=== PATIENT | female | born 1955 | race Caucasian/White ===

== ENCOUNTER 2017-11-14 14:41 | Outpatient (CLI) | payer BC | END 2017-11-14 14:42 | disposition home or self-care (01) | LOC: BICMAMMO 14:41 | PROVIDERS: ATTEND Obstetrics & Gynecology | DX: Z12.31 Encounter for screening mammogram for malignant neoplasm of breast (principal) | CPT/HCPCS: 77063; 77067 ==

== ENCOUNTER 2018-12-05 05:53 | Day surgery (SDC) | payer BC ==
[2018-12-04 12:46] VITALS: BMI 27.7
[2018-12-05] MEDS ORDERED: Sodium Chloride 0.9% 10 ML ONE (06:24)
[2018-12-05 06:49] LABS: #Basophils 0.1 thou/uL (0.0-0.2); #Eosinphils 0.3 thou/uL (0.0-0.7); #Lymphocytes 3.3 thou/uL (1.20-3.40); #Monocytes 1.1 thou/uL (0.11-0.59); #Neutrophils 6.6 thou/uL (1.40-6.50); %Basophils 0.6 % (0.0-1.0); %Eosinophils 2.8 % (0.0-10.0); %Lymphocytes 29.2 % (21.0-51.0); %Monocytes 9.2 % (0.0-10.0); %Neutrophils 58.2 % (42.0-75.0); Hemoglobin 15.4 g/dL (12.0-16.0); Mean Corpuscular HGB CONC 33.1 g/dL (32.0-36.0); Mean Corpuscular Hemoglobin 31.2 pg (27.0-31.0); Mean Corpuscular Volume 94.5 fL (78.0-98.0); Mean Platelet Volume 9.2 fL (7.4-10.4); Platelet Count 261 thou/uL (130-400); RBC Distribution Width 11.2 % (11.5-14.5); Red Blood Cell (RBC) Count 4.92 mill/uL (4.20-5.40); White Blood Cell (WBC) Count 11.4 thou/uL (4.8-10.8)
[2018-12-05] MEDS ORDERED: Fentanyl 100 MCG/2 ML VIAL ONE ×4 (06:58→09:46)
[2018-12-05 07:02] LABS: Anion Gap 13 mmol/L (10-20); BUN (Urea Nitrogen) 13 mg/dL (9.8-20.1); Calc. Creatinine Clearance 104 mL/min (70-130); Calcium 9.9 mg/dL (7.8-10.44); Carbon Dioxide 30 mmol/L (23-31); Chloride 103 mmol/L (98-107); Estimated GFR-MDRD 85; Glucose 101 mg/dL (80-115); Potassium 3.3 mmol/L (3.5-5.1); Sodium 143 mmol/L (136-145)
[2018-12-05] MEDS ORDERED: HYDROmorphone 0.5 MG/0.5 ML SYRINGE ONE ×4 (08:58→09:33)
[2018-12-05] MEDS ORDERED: Ketorolac Tromethamine 30 MG/ML VIAL ONE (09:14)
[2018-12-05] MEDS ORDERED: Promethazine HCl 25 MG/ML VIAL IM/IV PRN (09:17)
[2018-12-05] MEDS ORDERED: Ketorolac Tromethamine 30 MG/ML VIAL IM/IV PRN (09:17)
[2018-12-05] MEDS ORDERED: Ondansetron HCl/PF 4 MG/2 ML Vial IVP PRN (09:17)
[2018-12-05] MEDS ORDERED: Non-Formulary Medication 1 EACH PO PRN (09:17)
[2018-12-05] MEDS ORDERED: HYDROmorphone 2 MG/ML VIAL SLOW IVP PRN (09:17)
[2018-12-05] MEDS ORDERED: Ondansetron PF 4 MG/2 ML Vial ONE (09:35)
[2018-12-05] MEDS ORDERED: diphenhydrAMINE 25 MG CAP PO PRN (09:36)
[2018-12-05] MEDS ORDERED: Mag-Al 1200 mg/1200 mg/30 ML UDCUP PO PRN (09:36)
[2018-12-05] MEDS ORDERED: Promethazine HCl 25 MG/ML VIAL IM PRN (09:36)
[2018-12-05] MEDS ORDERED: HYDROcodone/Acetaminophen 10/325 mg Tablet PO PRN ×2 (09:36)
[2018-12-05] MEDS ORDERED: Promethazine HCl 12.5 MG SUPP PR PRN (09:36)
[2018-12-05] MEDS ORDERED: Promethazine 25 MG TAB PO PRN (09:36)
[2018-12-05] MEDS ORDERED: tiZANidine HCl 4 MG TAB PO PRN (09:36)
[2018-12-05] MEDS ORDERED: traMADol HCl 50 MG TAB PO PRN ×2 (09:36)
[2018-12-05] MEDS ORDERED: Sodium Chloride 0.9% 1,000 ML IV SCH (09:36)
[2018-12-05] MEDS ORDERED: Morphine 4 MG/ML VIAL SLOW IVP PRN (09:36)
[2018-12-05] MEDS ORDERED: Milk Of Magnesia 30 ML UDCUP PO PRN (09:36)
[2018-12-05] MEDS ORDERED: diphenhydrAMINE 50 MG/ML VIAL IVP PRN (09:36)
[2018-12-05] MEDS ORDERED: Ondansetron PF 4 MG/2 ML Vial IVP PRN (09:37)
[2018-12-05] MEDS ORDERED: Promethazine HCl 25 MG/ML VIAL ONE (09:49)
[2018-12-05] MEDS ORDERED: Morphine 2 MG/ML SYRINGE SLOW IVP PRN (10:00)
--- NOTE | 2018-12-05 10:45 | OP ---
DATE OF PROCEDURE: 12/05/2018 SOLDER DEPOSIT OPERATOR: Anabelle Petersen PA-C. PROCEDURES PERFORMED: L4-L5 laminectomy, posterolateral arthrodesis, pedicle screw instrumentation L4-L5, demineralized bone matrix, and local morselized autograft. DESCRIPTION OF PROCEDURE: The patient was brought to the operating room and intubated. She was rolled in a prone position on gel-filled chest rolls. Incision was made exposing L4 and L5, and the level was confirmed by x-ray. We performed complete L5 and inferior L4 laminectomies, completely decompressing the neural elements. Pedicle screws were then placed at right L4 and right L5 using lateral fluoroscopic guidance and position was confirmed by x-ray. The jarad was secured between the screws, connected by nuts, which were final tightened. The wound was extensively irrigated. MAC hemostasis was secured. A combination of demineralized bone matrix and local morselized autograft was laid over the lamina and posterolateral surfaces for the purpose of arthrodesis. Vancomycin powder was applied, and the wound was then closed in anatomic layers. Job ID: [id number]
[2018-12-05 12:25] VITALS: BP 116/68; TEMP 98
--- NOTE | 2018-12-07 10:15 | EKG ---
Test Reason : PREOP Blood Pressure : / mmHG Vent. Rate : 064 BPM Atrial Rate : 064 BPM P-R Int : 176 ms QRS Dur : 082 ms QT Int : 390 ms P-R-T Axes : 041 004 -21 degrees QTc Int : 402 ms Normal sinus rhythm Inferior infarct , age undetermined Abnormal ECG No previous ECGs available Confirmed by KATHERINE PUENTE MD ([id number]) on 12/07/2018 10:14:40 AM Referred By: ANGELA Confirmed By:KATHERINE PUENTE MD
== END 2018-12-05 15:50 | disposition home or self-care (01) ==
LOC: SDC 05:53 → SURG B 06:30 → SDC 15:50
PROVIDERS: ATTEND Neurological Surgery
PROC: 01NB0ZZ Release Lumbar Nerve, Open Approach (ICD-10-PCS; principal; 2018-12-05)
PROC: 0SG0071 Fusion of Lumbar Vertebral Joint with Autologous Tissue Substitute, Posterior Approach, Posterior Column, Open Approach (ICD-10-PCS; principal; 2018-12-05)
PROC: 0ST20ZZ Resection of Lumbar Vertebral Disc, Open Approach (ICD-10-PCS; principal; 2018-12-05)
DX: M43.16 Spondylolisthesis, lumbar region (principal); M48.062 Spinal stenosis, lumbar region with neurogenic claudication
CPT/HCPCS: 76000; 80048; 85025; 93005; 93010; J0131; J0690; J1170; J1885; J2405; J2550; J3010; J3370; J3490

== ENCOUNTER 2018-12-20 08:59 | Outpatient (CLI) | payer BC ==
--- NOTE | 2018-12-20 09:34 | RAD ---
TWO VIEWS LUMBAR SPINE: HISTORY: Spondylolisthesis at L4-L5. Follow-up from surgery. COMPARISON: None. FINDINGS: Five lumbar-type vertebrae. Lumbar spine vertebral body height is maintained. No fracture. Unilateral right-sided transpedicular screw at L4 and L5. No perihardware lucency. Spondylolisthesis: L4-L5: 8 mm of anterolisthesis. Laminectomy defect at L4 and L5. Incidental 2.7 cm gallstone is suspected. IMPRESSION: 1. Grade 1 anterolisthesis of L4 upon L5. Lumbar fusion at L4-L5. 2. Incidental 2.7 cm gallstone is suspected. Confirmation with right upper quadrant ultrasound is rec ommended. Code T Transcribed Date/Time: 12/20/2018 9:38 AM
== END 2018-12-20 09:00 | disposition home or self-care (01) ==
LOC: TBSIIMAG 08:59
PROVIDERS: ATTEND Neurological Surgery
DX: M43.16 Spondylolisthesis, lumbar region (principal); M48.062 Spinal stenosis, lumbar region with neurogenic claudication
CPT/HCPCS: 72100

== ENCOUNTER 2018-12-31 14:54 | Outpatient (CLI) | payer BC ==
--- NOTE | 2018-12-31 15:50 | MMO ---
Bilateral MAMMO Bilat Screen [facility]. CLINICAL HISTORY: Patient is 63 years old and is seen for screening. The patient has no family history of breast cancer. The patient has no personal history of cancer. The patient has a history of left Excisional Biopsy in April, - papilloma - ductal hyperplasia, left Stereotatic Biopsy in March, - papilloma and bilateral Breast reduction in 2008. VIEWS: The views performed were: bilateral craniocaudal with tomosynthesis and bilateral mediolateral oblique with tomosynthesis. FILMS COMPARED: The present examination has been compared to prior imaging studies performed at [facility] on 01/30/2014, 08/21/2015, 08/22/2016 and 11/14/2017. This study has been interpreted with the assistance of computer-aided detection. MAMMOGRAM FINDINGS: There are scattered fibroglandular densities. There are no suspicious masses, suspicious calcifications, or new areas of architectural distortion. IMPRESSION: THERE IS NO MAMMOGRAPHIC EVIDENCE OF MALIGNANCY. A ROUTINE FOLLOW-UP MAMMOGRAM IN 1 YEAR IS RECOMMENDED. THE RESULTS OF THIS EXAM WERE SENT TO THE PATIENT. ACR BI-RADS Category 1 - Negative MAMMOGRAPHY NOTE: 1. A negative mammogram report should not delay a biopsy if a dominant of clinically suspicious mass is present. 2. Approximately 10% to 15% of breast cancers are not detected by mammography. 3. Adenosis and dense breasts may obscure an underlying neoplasm. Reported by: Jose Alberto LUCAS Electonically Signed: [id number]
== END 2018-12-31 14:55 | disposition home or self-care (01) ==
LOC: BICMAMMO 14:54
PROVIDERS: ATTEND Obstetrics & Gynecology
DX: Z12.31 Encounter for screening mammogram for malignant neoplasm of breast (principal)
CPT/HCPCS: 77063; 77067

== ENCOUNTER 2019-02-21 13:58 | Outpatient (CLI) | payer BC ==
--- NOTE | 2019-02-21 14:21 | RAD ---
TWO VIEWS LUMBAR SPINE: INDICATION: Follow-up surgery. COMPARISON: Prior exam dated 12/20/2018. FINDINGS: Right unilateral pedicle screws at L4 and L5 with interconnecting jarad are stable. Laminectomy changes at L4-5 are similar appearing. Reyes 1 anterolisthesis of L4 and L5 is stable. Mild multilevel spondylosis stable. No acute fracture is evident. Levoscoliosis of lumbar spine is stable. Cholelithi asis is stable. IMPRESSION: Stable postoperative lumbar spine. Transcribed Date/Time: 02/21/2019 2:33 PM
== END 2019-02-21 13:59 | disposition home or self-care (01) ==
LOC: TBSIIMAG 13:58
PROVIDERS: ATTEND Neurological Surgery
DX: M54.5 Low back pain (principal); Z98.890 Other specified postprocedural states
CPT/HCPCS: 72100

== ENCOUNTER 2020-01-24 15:47 | Outpatient (CLI) | payer BC ==
--- NOTE | 2020-01-24 16:33 | MMO ---
Bilateral MAMMO Bilat Screen [facility]. CLINICAL HISTORY: Patient is 64 years old and is seen for screening. The patient has no family history of breast cancer. The patient has no personal history of cancer. The patient has a history of left Excisional Biopsy in April, - papilloma - ductal hyperplasia, left Stereotatic Biopsy in March, - papilloma and bilateral Breast reduction in 2008. VIEWS: The views performed were: bilateral craniocaudal with tomosynthesis and bilateral mediolateral oblique with tomosynthesis. FILMS COMPARED: The present examination has been compared to prior imaging studies performed at [facility] on 08/21/2015, 08/22/2016, 11/14/2017 and 12/31/2018. This study has been interpreted with the assistance of computer-aided detection. MAMMOGRAM FINDINGS: There are scattered fibroglandular densities. Benign calcifications are noted bilaterally. There are no suspicious masses, suspicious calcifications, or new areas of architectural distortion. IMPRESSION: THERE IS NO MAMMOGRAPHIC EVIDENCE OF MALIGNANCY. A ROUTINE FOLLOW-UP MAMMOGRAM IN 1 YEAR IS RECOMMENDED. THE RESULTS OF THIS EXAM WERE SENT TO THE PATIENT. ACR BI-RADS Category 2 - Benign finding MAMMOGRAPHY NOTE: 1. A negative mammogram report should not delay a biopsy if a dominant of clinically suspicious mass is present. 2. Approximately 10% to 15% of breast cancers are not detected by mammography. 3. Adenosis and dense breasts may obscure an underlying neoplasm. Reported by: REMBERTO ROBERTS MD Electonically Signed: [id number]
== END 2020-01-24 15:48 | disposition home or self-care (01) ==
LOC: BICMAMMO 15:47
PROVIDERS: ATTEND Obstetrics & Gynecology
DX: Z12.31 Encounter for screening mammogram for malignant neoplasm of breast (principal)
CPT/HCPCS: 77063; 77067

== ENCOUNTER 2021-02-08 14:56 | Outpatient (CLI) | payer BC | END 2021-02-08 14:57 | disposition home or self-care (01) | LOC: BICMAMMO 14:56 | PROVIDERS: ATTEND Internal Medicine | DX: Z12.31 Encounter for screening mammogram for malignant neoplasm of breast (principal); Z98.890 Other specified postprocedural states | CPT/HCPCS: 77063; 77067 ==

== ENCOUNTER 2022-03-07 10:26 | Outpatient (CLI) | payer BC | END 2022-03-07 10:27 | disposition home or self-care (01) | LOC: BICMAMMO 10:26 | PROVIDERS: ATTEND Internal Medicine | DX: Z12.31 Encounter for screening mammogram for malignant neoplasm of breast (principal); R92.1 Mammographic calcification found on diagnostic imaging of breast; Z98.890 Other specified postprocedural states; Z85.3 Personal history of malignant neoplasm of breast | CPT/HCPCS: 77063; 77067 ==

== ENCOUNTER 2022-03-10 09:59 | Outpatient (CLI) | payer BC | END 2022-03-10 10:00 | disposition home or self-care (01) | LOC: BICMAMMO 09:59 | PROVIDERS: ATTEND Internal Medicine | DX: R92.1 Mammographic calcification found on diagnostic imaging of breast (principal) | CPT/HCPCS: G0279 ==

== ENCOUNTER → 2022-03-17 | Day surgery (SDC) | payer BC | END | disposition home or self-care (01) | LOC: MAMMO 06:53 | PROVIDERS: ATTEND Internal Medicine | PROC: 0H9T3ZX Drainage of Right Breast, Percutaneous Approach, Diagnostic (ICD-10-PCS; principal; 2022-03-17) | DX: D24.1 Benign neoplasm of right breast (principal); N60.21 Fibroadenosis of right breast | CPT/HCPCS: 19081; 76098; 88305; A4648 ==

== ENCOUNTER 2023-03-30 14:25 | Outpatient (CLI) | payer BC | END 2023-03-30 14:26 | disposition home or self-care (01) | LOC: BICMAMMO 14:25 | PROVIDERS: ATTEND Obstetrics & Gynecology | DX: Z12.31 Encounter for screening mammogram for malignant neoplasm of breast (principal); Z91.89 Other specified personal risk factors, not elsewhere classified; Z98.890 Other specified postprocedural states | CPT/HCPCS: 77063; 77067 ==